=== PATIENT | female | born 1970 | race Caucasian/White ===

== ENCOUNTER 2016-10-05 22:07 | Emergency (ER) | payer OTHER ==
[2016-10-06 00:07] LABS: BASOPHIL % 0.3 % (0-2); PLATELET COUNT 205 x10^3mcL (130-400); RED CELL DISTRIBUTION WIDTH 13.1 % (11.5-14.5)
[2016-10-06 00:39] LABS: CALCIUM 8.5 mg/dL (8.5-10.1); CARBON DIOXIDE 24.9 mmol/L (21-32); CHLORIDE SERUM 102 mmol/L (98-107); CREATININE SERUM 0.7 mg/dL (0.6-1.0); GFR1 > 60 mL/min; GLUCOSE SERUM 112 mg/dL (74-106); POTASSIUM SERUM 4.1 mmol/L (3.5-5.1); SODIUM SERUM 136 mmol/L (136-145)
[2016-10-06 00:47] LABS: ALBUMIN 3.9 g/dL (3.4-5.0); ALKALINE PHOSPHATASE 86 U/L (46-116); ALT/SGPT 44 U/L (14-59); AMYLASE 59 U/L (25-115); AST/SGOT 20 U/L (15-37); BILIRUBIN TOTAL 0.28 mg/dL (0.20-1.00); LIPASE 89 IU/L (73-393); TOTAL PROTEIN, SERUM 7.8 g/dL (6.4-8.2)
[2016-10-06 01:30] VITALS: BP 115/87
== END 2016-10-06 01:30 | disposition home or self-care (01) ==
LOC: ED 22:07
PROVIDERS: Emergency Medicine
DX: K52.9 Noninfective gastroenteritis and colitis, unspecified (principal)
CPT/HCPCS: 83880; J1885

== ENCOUNTER 2016-12-01 18:14 | Emergency (ER) | payer SELFPAY ==
[2016-12-01 18:18] VITALS: BP 124/86
== END 2016-12-01 18:59 | disposition home or self-care (01) ==
LOC: ED 18:14
DX: H60.501 Unspecified acute noninfective otitis externa, right ear (principal); M26.621 Arthralgia of right temporomandibular joint

== ENCOUNTER 2017-05-10 11:12 | Emergency (ER) | payer OTHER ==
[~2017-05-10] VITALS: Ht 162.6 cm; Wt 64.9 kg
[2017-05-10 13:15] LABS: BASOPHIL % 1.2 % (0-2); PLATELET COUNT 213 x10^3mcL (130-400); RED CELL DISTRIBUTION WIDTH 13.3 % (11.5-14.5)
[2017-05-10 13:26] LABS: CALCIUM 8.8 mg/dL (8.5-10.1); CARBON DIOXIDE 26.6 mmol/L (21-32); CHLORIDE SERUM 103 mmol/L (98-107); CREATININE SERUM 0.6 mg/dL (0.6-1.0); GFR1 > 60 mL/min; GLUCOSE SERUM 93 mg/dL (74-106); POTASSIUM SERUM 3.8 mmol/L (3.5-5.1); SODIUM SERUM 138 mmol/L (136-145)
[2017-05-10 13:31] LABS: ALBUMIN 3.7 g/dL (3.4-5.0); ALKALINE PHOSPHATASE 76 U/L (46-116); ALT/SGPT 36 U/L (14-59); AST/SGOT 24 U/L (15-37); BILIRUBIN TOTAL 0.33 mg/dL (0.20-1.00); TOTAL PROTEIN, SERUM 7.7 g/dL (6.4-8.2)
[2017-05-10 15:12] VITALS: BP 122/61
== END 2017-05-10 15:10 | disposition home or self-care (01) ==
LOC: ED 11:12
PROVIDERS: Emergency Medicine
DX: R07.89 Other chest pain (principal); R06.02 Shortness of breath; J45.909 Unspecified asthma, uncomplicated
CPT/HCPCS: 36415; 83880; J1885; Q0092

== ENCOUNTER 2018-07-26 19:17 | Emergency (ER) | payer OTHER ==
[~2018-07-26] VITALS: Ht 149.9 cm; Wt 65.8 kg
[2018-07-26 20:15] VITALS: Ht 149.9 cm; Wt 65.8 kg
[2018-07-26 21:15] VITALS: BP 125/78
== END 2018-07-26 21:15 | disposition home or self-care (01) ==
LOC: ED 19:17
DX: J02.9 Acute pharyngitis, unspecified (principal); J45.909 Unspecified asthma, uncomplicated

== ENCOUNTER 2018-12-07 17:12 | Emergency (ER) | payer SELFPAY ==
[~2018-12-07] VITALS: Ht 149.9 cm; Wt 61.4 kg
[2018-12-07 17:20] VITALS: Ht 149.9 cm; Wt 61.4 kg
[2018-12-07 18:56] VITALS: BP 132/71
== END 2018-12-07 18:56 | disposition home or self-care (01) ==
LOC: ED 17:12
DX: T40.7X1A Poisoning by cannabis (derivatives), accidental (unintentional), initial encounter (principal); R11.2 Nausea with vomiting, unspecified; J45.909 Unspecified asthma, uncomplicated; Y92.89 Other specified places as the place of occurrence of the external cause
CPT/HCPCS: 82962; Q0162